=== PATIENT | male | born 1975 | race Two or more races ===

== ENCOUNTER 2024-04-11 12:02 | Emergency (ER) | payer OTHER ==
[~2024-04-11] VITALS: Ht 170.2 cm; Wt 85.9 kg
--- NOTE | 2024-04-11 12:51 | ED.PDOC ---
SOB-HPI HPI Comments 48 year old male presents to the ED with chief complaint of chest discomfort. Patient reports that he has been experiencing lower chest discomfort when taking deep breaths for a week now. 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 Patient denies any cough, chest pain, dizziness, fever, or chills. Chief Complaint: Shortness of Breath Time Seen by MD: 12:48 Reviewed notes: Nurses Notes, Medications, Allergies Information Source: Patient Mode of Arrival: Ambulatory Severity: Moderate Timing: Weeks Duration: Since onset Context: At Rest, With Light Exertion PE Risk Factors: None History of: Other (Testicular cancer) Prehospital treatment: None Modifying Factors: Exertion Associated Signs and Symptoms: Chest Pain Quality: Other (Discomfort) Radiation: No Radiation Location: Substernal Past Medical History PAST MEDICAL HISTORY: Cancer (Testicular cancer) Surgical History: Denies all surgeries Family History Family History: Reviewed,noncontributory to illness Social History Smoker: Non-Smoker Alcohol: Denies ETOH Use Drugs: Denies Drug Use Lives In: Home Constitutional: denies: chills, diaphoresis, fatigue, fever, malaise, sweats, weakness, others EENTM: denies: blurred vision, double vision, ear bleeding, ear discharge, ear drainage, ear pain, ear ringing, eye pain, eye redness, hearing loss, mouth pain, mouth swelling, nasal discharge, nose bleeding, nose congestion, nose pain, photophobia, tearing, throat pain, throat swelling, voice changes, others Respiratory: reports: others (Chest discomfort with deep breaths); denies: cough, hemoptysis, orthopnea, SOB at rest, shortness of breath, SOB with excertion, stridor, wheezing Cardiovascular: denies: chest pain, dizzy spells, diaphoresis, Dyspnea on exertion, edema, irregular heart beat, left arm pain, lightheadedness, palpitations, PND, syncope, others Gastrointestinal: denies: abdomen distended, abdominal pain, blood streaked bowels, constipated, diarrhea, dysphagia, difficulty swallowing, hematemesis, melena, nausea, poor appetite, poor fluid intake, rectal bleeding, rectal pain, vomiting, others Genitourinary: denies: burning, dysuria, flank pain, frequency, hematuria, incontinence, penile discharge, penile sore, pain, testicle pain, testicle swelling, urgency, others Neurological: denies: dizziness, fainting, headache, left sided numbness, left sided weakness, numbness, paresthesia, pre-existing deficit, right sided numbness, right sided weakness, seizure, speech problems, tingling, tremors, weakness, others Musculoskeletal: denies: back pain, gout, joint pain, joint swelling, muscle pain, muscle stiffness, neck pain, others Integumetry: denies: bruises, change in color, change in hair/nails, dryness, laceration, lesions, lumps, rash, wounds, others Allergic/Immunocompromised: denies: Difficulty Healing, Frequent Infections, Hives, Itching, others Hematologic/Lymphatic: denies: anemia, blood clots, easy bleeding, easy bruising, swollen glands, others Endocrine: denies: excessive hunger, excessive sweating, excessive thirst, excessive urination, flushing, intolerance to cold, intolerance to heat, unexplained weight gain, unexplained weight loss, others Psychiatric: denies: anxiety, bipolar disorder, depression, hopeless, panic disorder, schizophrenia, sleepless, suicidal, others All Other Systems: Reviewed and Negative Physical Exam General Appearance: No Apparent Distress HEENT: Normal ENT Inspection Neck: Full Range of Motion, Normal Inspection Respiratory: Lungs Clear, No Accessory Muscle Use, No Respiratory Distress, Normal Breath Sounds Cardiovascular: No Edema, No JVD, Tachycardia Breast Exam: Deferred Gastrointestinal: Non Tender, Soft Genitalia: Deferred Pelvic: Deferred Rectal: Deferred Extremities: Normal inspection, Normal range of motion, Non-tender, No pedal edema Neurologic: Alert (Oriented x4), Normal Affect, Normal Mood, Other (Ambulatory without difficulty. No gross focal deficit.) Cerebellar Function: NOT DONE Reflexes: NOT DONE Skin: Dry, Pallor, Warm Lymphatic: NOT DONE Was a procedure done? Was a procedure done?: No Differential Dx Differential Diagnosis: Anxiety, Asthma, Bronchitis, CHF, COPD, Myocardial infarction, Panic Attack, Pneumonia, Pneumothorax, Pulmonary Embolism, Respiratory Distress, URI X-Ray, Labs, Meds, VS Vital Signs Date Time Temp Pulse Resp B/P (MAP) Pulse Ox O2 Delivery O2 Flow Rate FiO2 04/11/24 20:02 98.1 100 16 135/94 (108) 95 98.1 04/11/24 12:28 98.3 116 16 127/90 (102) 97 Lab Test 04/11/24 16:20 04/11/24 14:07 04/11/24 13:08 Range/Units Troponin I High Sensitivity < 3 L < 3 L < 3 L </=54 ng/L White Blood Count 20.5 H 4.4-10.8 10^3/uL Red Blood Count 3.90 L 4.5-5.90 10^6/uL Hemoglobin 12.3 L 13.5-17.5 g/dL Hematocrit 35.8 L 41.0-53.0 % Mean Corpuscular Volume 91.8 80.0-100.0 fL Mean Corpuscular Hemoglobin 31.5 28.0-32.0 pg Mean Corpuscular Hemoglobin Concent 34.3 32.0-36.0 g/dL Red Cell Distribution Width 14.2 11.8-14.3 % Platelet Count 282 140-450 10^3/uL Mean Platelet Volume 8.4 6.9-10.8 fL Neutrophils (%) (Auto) 37.0-80.0 % Lymphocytes (%) (Auto) 10.0-50.0 % Monocytes (%) (Auto) 0.0-12.0 % Basophils (%) (Auto) 0.0-2.0 % Neutrophils # (Auto) 1.6-8.6 10 ^3/uL Lymphocytes # (Auto) 0.4-5.4 10 ^3/uL Monocytes # (Auto) 0-1.3 10 ^3/uL Differential Total Cells Counted 100.0 100 Neutrophils % (Manual) 57 37.0-80.0 Band Neutrophils % (Manual) 5 Lymphocytes % (Manual) 13 10.0-50.0 Monocytes % (Manual) 22 H 0-12 Eosinophils % (Manual) 3 0-7 Basophils % (Manual) 0 0.0-2.0 Metamyelocytes % (manual) 0 Myelocytes % (Manual) 0 Promyelocytes % (Manual) 0 Blast Cells % (Manual) 0 Nucleated Red Blood Cells 1.0 % Reactive Lymphocytes 0 Platelet Estimate Adequate Large Platelets Few Anisocytosis (manual) Slight D-Dimer, Quantitative 0.64 H 0.0-0.49 mg/L FEU Sodium Level 139 136-145 mmol/L Potassium Level 4.5 3.5-5.1 mmol/L Chloride Level 105 98-107 mmol/L Carbon Dioxide Level 28 20-31 mmol/L Anion Gap 6 5-15 Blood Urea Nitrogen 16 9-23 mg/dL Creatinine 1.05 0.700-1.30 mg/dL Glomerular Filtration Rate Calc 87 >90 mL/min BUN/Creatinine Ratio 15.2 10.0-20.0 Serum Glucose 116 H 74-106 mg/dL Calcium Level 9.7 8.7-10.4 mg/dL Total Bilirubin 0.2 0.2-1.0 mg/dL Aspartate Amino Transferase (AST) 14 13-40 U/L Alanine Aminotransferase (ALT) 22 7-40 U/L Alkaline Phosphatase 135 H 46-116 U/L B-Type Natriuretic Peptide 3.07 0-100 pg/mL Total Protein 6.1 5.7-8.2 g/dL Albumin 4.2 3.2-4.8 g/dL Current Medications Medications (Trade) Dose Ordered Sig/Sherin Route Start Time Stop Time Status Last Admin Ketorolac Tromethamine (Toradol Injection) 15 mg ONCE ONCE IV 04/11/24 18:30 04/11/24 19:28 DC 04/11/24 19:58 Chest XR: FINDINGS: Central line tip in the low superior vena cava. No infiltrates or effusions. Heart size normal. IMPRESSION: 1. No acute cardiopulmonary pathology PROCEDURE(s): CTACH - CT ANGIO CHEST CONTRAST REASON: cp, sob, hi dimer r/o pe ORDER NUMBER(s): [id number], ACCESSION NUMBER(s): [id number] PROCEDURE: CT CT ANGIO CHEST CONTRAST 04/11/2024 05:00 PM INDICATION: cp, sob, hi dimer r/o pe COMPARISON: None TECHNIQUE: Coverage: Thorax IV contrast: Administered Phases: Arterial Multiplanar 3-D Maximum Intensity Projection images (MIP) reconstructions were created by the technologist in the coronal and sagittal planes as part of the CT angiography protocol. Adverse events: None Medication laboratory values were reviewed to verify the patient meets criteria for contrast administration. All CT scans at this medical facility are performed using dose modulation techniques as appropriate to a performed exam including the following: Automated exposure control was utilized; adjustment of the MA and/or KV according to patient size; and use of iterative reconstruction technique. Radiation dose: CTDIvol 22 mGy, DLP 5.9 mGy*cm. FINDINGS: Cardiovascular: No evidence of acute or chronic pulmonary emboli identified. Aorta is normal in caliber. The heart is normal in size. Lungs: No lobar consolidation. Left basilar subsegmental atelectasis noted. No pleural effusion. No pneumothorax. The airways are patent. Thyroid: Unremarkable Esophagus: Unremarkable. Lymphatics: No hilar or mediastinal lymphadenopathy. Bones/soft tissues: No acute abnormality. Upper abdomen: No acute abnormality. Other: None. IMPRESSION: 1. No evidence of acute pulmonary emboli. X-Ray, Labs, Meds, VS Comment 48-year-old male with a history of metastatic cancer on chemo referred by oncologist for chest pain and shortness a breath to rule out PE Vitals remarkable for heart rate 116 Exam unremarkable Rhythm strip independently interpreted by me: Sinus tach, rate 116, no ectopy. Chest x-ray unremarkable pt CTA chest: IMPRESSION: 1. No evidence of acute pulmonary emboli. CBC remarkable for WBC 20.5, CMP, BNP and 3 serial troponins unremarkable for any abnormality of acute significance. D-dimer was elevated Patient treated with the following in the ED: 1 L 0.9 normal saline IV bolus, Toradol 15 mg IVP On re-evaluation, tachycardia had resolved, patient was not having chest discomfort. Vitals were otherwise stable. Hospitalization was considered, however patient had rapid improvement of his symptoms with treatment in the ED, and I no longer feel hospitalization is necessary. Patient appears stable for close outpatient follow-up with his oncologist. Images Reviewed?: Images reviewed and evaluated by me Time of 1ST Reevaluation: 13:48 Reevaluation 1ST: Unchanged Patient Education/Counseling: Diagnosis, Treatment Family Education/Counseling: No Family Present Departure 1 Departure Time of Disposition: 18:22 Impression: Primary Impression: Pleurisy Disposition: 01 HOME / SELF CARE / HOMELESS Condition: Stable Additional Instructions: Your chest x-ray was normal, your CT scan did not show a blood clot in your l ungs or any other abnormality. Your blood tests including heart testing did not show any concern for heart attack or heart failure. Your white blood cell count is elevated, which can be followed up by your oncologist. I have prescribed pain medication to take as needed. Return to ER for persistent or worsening symptoms. e-Prescriptions Ibuprofen Micronized (Ibuprofen) 800 Mg Tab 800 MG PO Q8HPRN PRN, #30 TAB prn pain, take with food Prov: ARDEN KO MD 04/11/24 Discharged With: Relative Critical Care Note Critical Care Time?: No Stability Stability form required: No Heart Score Heart Score: Heart Score Response (Comments) Value History Slightly Suspicious 0 EKG Repolarization Disturb 1 Age 45-64 1 Risk Factors No known risk factors 0 Troponin Normal limit 0 Total 2 I personally scribed for ARDEN KO MD ([email or web address]) on 04/11/24 at 12:51. Electronically submitted by Korey Santillan ([email or web address]). I personally scribed for ARDEN KO MD ([email or web address]) on 04/11/24 at 14:29. Electronically submitted by Korye Santillan ([email or web address]). ARDEN KO MD Apr 11, 2024 12:51
--- NOTE | 2024-04-11 13:01 | DVH ---
Chest x-ray Technique: AP portable HISTORY: sob Comparison: None FINDINGS: Central line tip in the low superior vena cava. No infiltrates or effusions. Heart size nor mal. IMPRESSION: 1. No acute cardiopulmonary pathology
[2024-04-11 13:20] LABS: Hematocrit 35.8 % (41.0-53.0); Hemoglobin 12.3 g/dL (13.5-17.5); Mean Corpuscular Hemoglobin 31.5 pg (28.0-32.0); Mean Corpuscular Hgb Conc. 34.3 g/dL (32.0-36.0); Mean Corpuscular Volume 91.8 fL (80.0-100.0); Platelet Count (auto) 282 10^3/uL (140-450); Red Cell Distribution Width 14.2 % (11.8-14.3); White Blood Cell 20.5 10^3/uL (4.4-10.8)
[2024-04-11 13:29] LABS: Basophils % (manual) 0 (0.0-2.0); Blast Cells 0; Metamyelocytes % 0; Myelocytes % 0; Promyelocytes % 0; Reactive Lymphocytes 0
[2024-04-11 13:37] LABS: Alanine Aminotransferase 22 U/L (7-40); Albumin 4.2 g/dL (3.2-4.8); Anion Gap 6 (5-15); Aspartate Aminotransferase 14 U/L (13-40); BUN/Creatinine Ratio 15.2 (10.0-20.0); Band Neutrophils % (manual) 5; Blood Urea Nitrogen 16 mg/dL (9-23); Calcium 9.7 mg/dL (8.7-10.4); Carbon Dioxide 28 mmol/L (20-31); Chloride 105 mmol/L (98-107); Eosinophils % (manual) 3 (0-7); Lymphocytes % (manual) 13 (10.0-50.0); Monocytes % (manual) 22 (0-12); Potassium 4.5 mmol/L (3.5-5.1); Sodium 139 mmol/L (136-145)
[2024-04-11 13:38] LABS: Alkaline Phosphatase 135 U/L (46-116); Anisocytosis Slight; Bilirubin, Total 0.2 mg/dL (0.2-1.0); Glucose 116 mg/dL (74-106); Large Platelets FEW; Platelet Estimate Adequate; Total Protein 6.1 g/dL (5.7-8.2)
[2024-04-11] MEDS: IOHEXOL 350 MG/ML 100ML IJ ONE (16:59)
--- NOTE | 2024-04-11 17:38 | DVH ---
PROCEDURE: CT CT ANGIO CHEST CONTRAST 04/11/2024 05:00 PM INDICATION: cp, sob, hi dimer r/o pe COMPARISON: None TECHNIQUE: Coverage: Thorax IV contrast: Administered Phases: Arterial Multiplanar 3-D Maximum Intensity Projection images (MIP) reconstructions were created by the technmata grace in the coronal and sagittal planes as part of the CT angiography protocol. Adverse events: None Medication laboratory values were reviewed to verify the patient meets criteria for contrast administ ration. All CT scans at this medical facility are performed using dose modulation techniques as appropriate t o a performed exam including the following: Automated exposure control was utilized; adjustment of th e MA and/or KV according to patient size; and use of iterative reconstruction technique. Radiation dose: CTDIvol 22 mGy, DLP 5.9 mGy*cm. FINDINGS: Cardiovascular: No evidence of acute or chronic pulmonary emboli identified. Aorta is normal in calib er. The heart is normal in size. Lungs: No lobar consolidation. Left basilar subsegmental atelectasis noted. No pleural effusion. No pneumothorax. The airways are patent. Thyroid: Unremarkable Esophagus: Unremarkable. Lymphatics: No hilar or mediastinal lymphadenopathy. Bones/soft tissues: No acute abnormality. Upper abdomen: No acute abnormality. Other: None. IMPRESSION: 1. No evidence of acute pulmonary emboli.
[2024-04-11] MEDS ORDERED: IBUP-1455 PO (18:25)
[2024-04-11] MEDS: SODIUM CHLORIDE 0.9% 1,000 ML IV ONE (18:30)
[2024-04-11] MEDS: KETOROLAC TROMETH 30 MG/ML 1ML VIAL IV ONE (19:58)
[2024-04-11 20:02] VITALS: BP 135/94; PULSE 100; RESP 16; TEMP 98.1; O2SAT 95
== END 2024-04-11 19:55 | disposition home or self-care (01) ==
LOC: ER 12:02
DX: R09.1 Pleurisy (principal); Z85.47 Personal history of malignant neoplasm of testis
CPT/HCPCS: 36415; 71045; 71275; 80053; 83880; 84484; 85007; 85027; 85379; 96374; 99285; J1885; Q9967